=== PATIENT | female | born 1990 | race Hispanic/Latino ===

== ENCOUNTER 2023-12-17 10:25 | Emergency (ER) | payer OTHER, SELFPAY ==
[2023-12-17 10:31] VITALS: BP 121/73; PULSE 65; RESP 16; TEMP 36.7; O2SAT 100; BMI 22.0
--- NOTE | 2023-12-17 10:36 | DI.US.S_ITS ---
PROCEDURE: US OB <= 14 WEEKS FETUS INDICATIONS: bleeding and pain TECHNIQUE: Real-time scanning was performed of the fetus and maternal pelvic organs, with image documentation. Endovaginal scanning was also performed to better visualize the fetus and maternal ovaries. COMPARISON: None. FINDINGS: No evidence of intrauterine gestation is seen. The ovaries are within normal limits bilaterally. IMPRESSION: No intrauterine gestation. Ectopic cannot be excluded. We strive to produce accurate, complete, and clear reports of imaging services. To assist us in improving patient care, this report was composed using standard report templates and voice recognition software. Therefore, it may contain abnormal punctuation, insertions and/or omissions. Occasional wrong-word or sound-alike substitutions may occur. Though we review the report and make efforts to correct it, we do recommend that the report be read carefully in proper context to recognize any text inaccuracies. Dictated by: Cari Amador M.D. on 12/17/2023 at 11:29 Approved by: Cari Amador M.D. on 12/17/2023 at 11:30
[2023-12-17 10:59] LABS: Add Manual Diff / Slide Review NO; Basophils Absolute Auto 0 /uL (0-100); Basophils Percent Auto 0.6 % (0-2); Eosinophils Absolute Auto 100 /uL (0-450); Hematocrit 39.1 % (36-46); Hemoglobin 13.2 g/dL (12.0-16.0); Lymphocytes Absolute Auto 1200 /uL (1100-4500); Lymphocytes Percent Auto 22.9 % (25-40); Mean Corpuscular HGB Conc 33.7 % (30-36); Mean Corpuscular Hemoglobin 31.7 PG (26-34); Mean Corpuscular Volume 94.1 fL (80-100); Monocytes Absolute Auto 500 /uL (0-900); Monocytes Percent Auto 8.8 % (3-14); Neutrophils Absolute Auto 3600 /uL (1500-7000); Neutrophils Percent Auto 66.7 % (50-75); Platelet Count 219 X10^3/uL (150-400); Red Blood Cell Count 4.15 X10^6/uL (4.0-5.2); Red Cell Distribution Width 13.6 % (11.6-14.8); White Blood Cell Count 5.4 X10^3/uL (4.5-11.0)
[2023-12-17 11:08] LABS: Alanine Aminotransferase 24 IU/L (<35); Albumin 4.6 g/dL (3.5-5.0); Albumin Globulin Ratio 1.4 (1.0-2.8); Alkaline Phosphatase 43 U/L (38-126); Aspartate Aminotransferase 25 IU/L (14-36); BUN Creatinine Ratio 15.8 (6-22); Bilirubin Total 0.8 mg/dL (0.2-1.3); Blood Urea Nitrogen 12 mg/dL (7-17); Calcium 9.1 mg/dL (8.4-10.2); Carbon Dioxide 23 mmol/L (22-32); Chloride 107 mmol/L (98-107); Estimated Glomerular Filt Rate > 60 mL/min (>60); Globulin 3.4 g/dL (1.7-4.1); Glucose 85 mg/dL (70-100); HEMOLYSIS < 15 (0-50); Potassium 3.8 mmol/L (3.4-5.1); Sodium 137 mmol/L (137-145)
[2023-12-17 11:24] LABS: HCG Quantitative /Beta subunit 215.52 mIU/mL
--- NOTE | 2023-12-17 11:39 | ED.PREGNANCY ---
HPI - General Chief complaint: Urogenital-Female Stated complaint: Think she is having a Miscarriage 5 weeks Time Seen by Provider: 12/17/23 11:20 Source: patient Mode of arrival: Ambulatory Limitations: no limitations History of Present Illness HPI Narrative: Patient and are here for concern of miscarriage. They are from [facility]. Patient has not had care yet. Patient is on vitamins. Patient is . Took home test and was positive. First day of last period was November 05. They did try conceiving around November 25. Patient has been doing well until this morning had vaginal bleeding but not as heavy as her menstrual cycle. No dizziness no syncope no shortness of breath. They are returning to [place] this Friday. Related Data Allergies Allergy/AdvReac Type Severity Reaction Status Date / Time No Known Drug Allergies Allergy Verified 12/17/23 10:35 Review of Systems Review of Systems Narrative: GENERAL: negative chills, fatigue, malaise, fever, sweats. HEENT: negative sinus pain, ear pain, sore throat RESPIRATORY: negative dyspnea, cough CARDIOVASCULAR: negative chest pain, palpitations GASTROINTESTINAL: negative nausea, vomiting, abdominal pain : negative dysuria, frequency, hematuria, positive vaginal bleeding MUSCULOSKELETAL: negative muscle or bony pain SKIN: negative rash, skin lesions NEUROLOGIC: negative weakness, numbness ROS Unobtainable: All systems reviewed & are unremarkable except as noted in HPI and below Exam Narrative Exam Narrative: GENERAL: in no distress, not toxic not dyspneic HEAD: Normocephalic. EYES: Pupils equal round, pink conjunctiva ENT: Mucous membranes moist. NECK: Trachea midline. CARDIOVASCULAR: Regular rate and rhythm RESPIRATORY: Clear to auscultation. Breath sounds equal bilaterally. No wheezes, rales, or rhonchi. GASTROINTESTINAL: Abdomen soft, non-tender, nontender pelvis no peritoneal signs no CVA tenderness. EXTREMITIES: No gross deformities. BACK: No flank tenderness. NEURO: AOx4. SKIN: Warm and dry PSYCH: Not anxious, is cooperative Initial Vital Signs Initial Vital Signs: Vital Signs Temperature 98.0 F 12/17/23 10:31 Pulse Rate 65 12/17/23 10:31 Respiratory Rate 16 12/17/23 10:31 Blood Pressure 121/73 12/17/23 10:31 Pulse Oximetry 100 12/17/23 10:31 Oxygen Delivery Method Room Air 12/17/23 10:31 Course Orders Ordered: ED Orders 12/17/23 10:36 US OB <= 14 weeks fetus Stat 12/17/23 10:47 Complete Blood Count AUTO DIFF Stat Comprehensive Metabolic Panel Stat HCG Quantitative /Beta subunit Stat Type and Screen Stat Vital Signs Vital signs: Vital Signs - 8 hr 12/17/23 10:31 Temperature 98.0 F Pulse Rate 65 Respiratory Rate 16 Blood Pressure 121/73 Pulse Oximetry 100 Oxygen Delivery Method Room Air MDM - OB/Uterine Contractions Lab Data 12/17/23 10:47 12/17/23 10:47 Labs: Lab Results 12/17/23 12/17/23 Range/Units 10:47 11:33 WBC 5.4 (4.5-11.0) X10^3/uL RBC 4.15 (4.0-5.2) X10^6/uL Hgb 13.2 (12.0-16.0) g/dL Hct 39.1 (36-46) % MCV 94.1 (80-100) fL MCH 31.7 (26-34) PG MCHC 33.7 (30-36) % RDW 13.6 (11.6-14.8) % Plt Count 219 (150-400) X10^3/uL Neut % (Auto) 66.7 (50-75) % Lymph % (Auto) 22.9 L (25-40) % [place] % (Auto) 8.8 (3-14) % Eos % (Auto) 1.0 L (2-4) % Baso % (Auto) 0.6 (0-2) % Neut # (Auto) 3600 (1124-6045) /uL Lymph # (Auto) 1200 (5163-6081) /uL [place] # (Auto) 500 (0-900) /uL Eos # (Auto) 100 (0-450) /uL Baso # (Auto) 0 (0-100) /uL Sodium 137 (137-145) mmol/L Potassium 3.8 (3.4-5.1) mmol/L Chloride 107 (98-107) mmol/L Carbon Dioxide 23 (22-32) mmol/L BUN 12 (7-17) mg/dL Creatinine 0.76 (0.52-1.04) mg/dL Estimated GFR > 60 (>60) mL/min BUN/Creatinine Ratio 15.8 (6-22) Glucose 85 (70-100) mg/dL Calcium 9.1 (8.4-10.2) mg/dL Total Bilirubin 0.8 (0.2-1.3) mg/dL AST 25 (14-36) IU/L ALT 24 (<35) IU/L Alkaline Phosphatase 43 (38-126) U/L Total Protein 8.0 (6.3-8.2) g/dL Albumin 4.6 (3.5-5.0) g/dL Globulin 3.4 (1.7-4.1) g/dL Albumin/Globulin Ratio 1.4 (1.0-2.8) HCG, Quant 215.52 mIU/mL Urine RBC 0-1/hpf (0-5/HPF) Urine WBC None seen (0-5/HPF) Ur Squamous Epith Cells None seen (0-5/HPF) Urine Bacteria None seen (None) Ur Culture Indicated? Cult not indicated Vol Urine Centrifuged 10ml (spun) Blood Type A Positive Antibody Screen Negative Urine Dip Bedside Urine Glucose Negative Bedside Urine Bilirubin - Negative Bedside Urine Ketone - Negative Urine Specific [place] 1.010 Bedside Urine Occult Blood +/- Bedside Urine pH 6.0 Bedside Urine Protein - Negative Bedside Urine Urobilinogen - Negative Bedside Urine Nitrite - Negative Bedside Urine Leukocytes - Negative Esterase Imaging Data US - OB: Radiologist's Impression: [place] [address] Ultrasound Report Signed Patient: Rebecca Morton MR#: [id number] : 1990 Acct:[id number] Age/Sex: 33 / F Date of Service: 12/17/23 Loc: ED Accession Number: [id number] Procedure: US OB <= 14 weeks fetus Ordering Provider: Samuel Marin MD PROCEDURE: US OB <= 14 WEEKS FETUS INDICATIONS: bleeding and pain TECHNIQUE: Real-time scanning was performed of the fetus and maternal pelvic organs, with image documentation. Endovaginal scanning was also performed to better visualize the fetus and maternal ovaries. COMPARISON: None. FINDINGS: No evidence of intrauterine gestation is seen. The ovaries are within normal limits bilaterally. IMPRESSION: No intrauterine gestation. Ectopic cannot be excluded. We strive to produce accurate, complete, and clear reports of imaging services. To assist us in improving patient care, this report was composed using standard report templates and voice recognition software. Therefore, it may contain abnormal punctuation, insertions and/or omissions. Occasional wrong-word or sound-alike substitutions may occur. Though we review the report and make efforts to correct it, we do recommend that the report be read carefully in proper context to recognize any text inaccuracies. Dictated by: Cari Amador M.D. on 12/17/2023 at 11:29 Approved by: Cari Amador M.D. on 12/17/2023 at 11:30 [facility] Narrative Medical decision making narrative: Patient and are here for concern of miscarriage. They are from [facility]. Patient has not had care yet. Patient is on vitamins. Patient is . Took home test and was positive. First day of last period was November 05. They did try conceiving around November 25. Patient has been doing well until this morning had vaginal bleeding but not as heavy as her menstrual cycle. No dizziness no syncope no shortness of breath. They are returning to [place] this Friday. After history and exam CBC CMP type and screen quantitative HCG, pelvic ultrasound [facility] Medical records reviewed: No recent visit for this complaint Differential considered: Includes but not limited to complete miscarriage threatened miscarriage Lab Test results independently reviewed as above. Pertinent findings: WBC 5.4 hemoglobin 13.2 sodium 137 potassium 3.8 BUN 15.8 GFR greater than 60 AST 25 ALT 24 quantitative hCG 215, a positive Imaging studies independently reviewed: Pelvic ultrasound ectopic can not be excluded, no IUP seen Consultations: None indicated at this time Treatments: None indicated Re-evaluations: 11:43 a.m.. Reviewed results with patient and . At this time likely miscarriage. However ectopic can not be ruled out. Needs to return here in 48 hours for repeat quantitative hCG. No pain at this time. Nontoxic. Return precautions reviewed and they desire discharge home. Reviewed with them complete miscarriage versus early versus ectopic Discussion: Appropriate for discharge home exam is reassuring. Blood work reassuring. No RhoGAM needed. Return precautions reviewed ectopic precautions reviewed. They will return in 48 hours for repeat quantitative hCG. They will follow up with their OBGYN doctor in [place]. Diagnosis: Threatened miscarriage Discharge Plan Departure Patient Disposition: Home Clinical Impression: Miscarriage, threatened, early Instructions: DI for Ectopic , DI for Threatened Activity Restrictions/Additional Instructions: Your laboratory studies and imaging studies are concerning for threatened miscarriage. However ectopic is also considered. Please review discharge instructions for both. Please do return here in 48 hours for repeat quantitative hCG hormone levels to see changes from today, the hormone level was 215. This would be very low for your approximated timeframe. Continue vitamins. Please do see your OBGYN doctor when you return to [place]. Return if worse if any questions or concerns Stand Alone Forms: Patient Portal/API
[2023-12-17 11:48] LABS: Urine Volume 10mL (spun)
[2023-12-17 11:52] LABS: Bacteria Urine None Seen; RBC Urine 0-1/HPF (0-5/HPF); Squamous Epithelial Cell Urine None Seen (0-5/HPF); WBC Urine None Seen (0-5/HPF)
[2023-12-17 11:53] LABS: Culture Indicated Urine Cult Not Indicated
[2023-12-17 11:56] VITALS: BP 108/63; PULSE 64; RESP 12; O2SAT 100
== END 2023-12-17 11:57 | disposition home or self-care (01) ==
PROVIDERS: Emergency Provider Emergency Medicine
DX: O20.0 Threatened abortion (principal)
CPT/HCPCS: 36415; 76801; 80053; 81003; 81015; 84702; 85025; 86850; 86900; 86901; 99284